=== PATIENT | male | born 1965 | race Caucasian/White ===

== ENCOUNTER → 2020-04-14 | Outpatient (CLI) | payer MEDICARE | LOC: KOH-I 13:10 | DX: E55.9 Vitamin D deficiency, unspecified (principal); R53.83 Other fatigue; G35 Multiple sclerosis; E53.8 Deficiency of other specified B group vitamins | CPT/HCPCS: 70551 ==

== ENCOUNTER → 2021-08-23 | Outpatient (CLI) | payer BC | LOC: EMI 13:45 | DX: G35 Multiple sclerosis (principal) | CPT/HCPCS: 70551 ==